=== PATIENT | male | born 1975 | race Caucasian/White ===

== ENCOUNTER 2025-03-05 09:30 | Day surgery (SDC) | payer OTHER ==
[2025-03-05] MEDS: Lactated Ringers 1,000 ML IV SCH (10:22)
[2025-03-05] MEDS ORDERED: Midazolam 1 MG/ML 2 ML SDV ONE (12:01)
[2025-03-05] MEDS ORDERED: fentaNYL 50 MCG/ML SDV ONE (12:01)
[2025-03-05] MEDS ORDERED: Propofol 200 MG/20 ML SDV ONE ×2 (12:01→12:29)
== END 2025-03-05 13:50 | disposition home or self-care (01) ==
LOC: JP.SDS 09:30
PROVIDERS: ATTEND Surgery
DX: Z12.11 Encounter for screening for malignant neoplasm of colon (principal)
CPT/HCPCS: 00812; 45378; J2250; J2704; J3010; J7120